=== PATIENT | female | born 1985 | race Caucasian/White ===

== ENCOUNTER 2020-12-28 23:16 | Emergency (ER) | payer OTHER ==
[~2020-12-28] VITALS: Ht 162.6 cm; Wt 69.4 kg
[~2020-12-28 23:16] MED LIST: ACETAMINOPHEN-1 EAC1 PO; ADDERALL 30 MG30 MG PO; CIPROFLOXACIN500 M1 PO; FLEXERIL PO; HYDROCHLOROTH12.5 M1 PO; IBUPROFEN 800800 MG PO; LISINOPRIL10 MG PO; LISINOPRIL20 MG PO; NOHOMEMEDICATIONS; NORCO 5-325 TA1 EACH PO; PRENATAL PO; ROBAXIN500 MG PO; TRAMADOL 50 MG50 MG PO; ZOFRAN ODT4 MG SUBLING
[2020-12-28 23:35] LABS: URINE BILIRUBIN NEGATIVE (Negative); URINE BLOOD TRACE (Negative); URINE CLARITY CLEAR; URINE COLOR YELLOW; URINE GLUCOSE-RANDOM NEGATIVE (Negative); URINE KETONES NEGATIVE (Negative); URINE LEUKOCYTES-REFLEX NEGATIVE (Negative); URINE NITRITE-REFLEX NEGATIVE (Negative); URINE PROTEIN NEGATIVE (Negative); URINE SPECIFIC GRAVITY >= 1.030 (1.005-1.030); URINE UROBILINOGEN 0.2 E.U./dl (0.2-1.0)
[2020-12-28 23:42] LABS: AMP/METHAMP Negative (Negative); BARBITURATES Negative (Negative); BENZODIAZEPINES Negative (Negative); COCAINE Negative (Negative); METHADONE Negative (Negative); OPIATES POSITIVE (Negative); PCP Negative (Negative); THC Negative (Negative)
[2020-12-29 00:40] LABS: ABSOLUTE BASOPHILS 0.1 thou/uL (0.0-0.2); ABSOLUTE EOSINOPHILS 0.5 thou/uL (0.0-0.7); ABSOLUTE LYMPHOCYTES 3.5 thou/uL (0.8-5.3); ABSOLUTE MONOCYTES 0.7 thou/uL (0.0-1.2); ABSOLUTE NEUTROPHILS 10.4 thou/uL (1.6-8.1); BASOPHILS 0.7 %; EOSINOPHILS 3.1 %; HEMATOCRIT 46.6 % (37.0-47.0); HEMOGLOBIN 16.1 gm/dL (12.0-15.0); LYMPHOCYTES 23.1 %; MCH 33.7 pg (26.0-34.0); MCHC 34.4 g/dL (28.0-37.0); MCV 97.7 fL (80.0-100.0); MONOCYTES 4.8 %; NUCLEATED RBCS 0 /100WBC; PLATELET COUNT* 244 thou/uL (150-400); POLYS 68.3 %; RBC 4.77 mil/uL (4.20-5.00); RDW-CV 13.8 % (10.5-14.5); WBC 15.3 thou/uL (4.0-11.0)
[2020-12-29 00:41] LABS: CALCIUM 8.2 mg/dL (8.5-10.1); POTASSIUM 3.3 mmol/L (3.5-5.1)
[2020-12-29] MEDS ORDERED: TRAMADOL 50 MG50 MG PO (02:26)
[2020-12-29] MEDS ORDERED: FLEXERIL PO (02:26)
[2020-12-29 02:36] VITALS: BP 154/96
== END 2020-12-29 02:37 | disposition home or self-care (01) ==
LOC: M.ERS 23:16
PROVIDERS: Emergency Medicine
DX: M54.50 Low back pain, unspecified (principal); Z79.899 Other long term (current) drug therapy; Z88.2 Allergy status to sulfonamides

== ENCOUNTER 2021-03-11 02:17 | Emergency (ER) | payer OTHER ==
[~2021-03-11] VITALS: Ht 162.6 cm; Wt 68.0 kg
[2021-03-11] MEDS ORDERED: LISINOPRIL-HCT1 EACH PO (02:29)
[2021-03-11] MEDS ORDERED: PROTONIX40 M2 PO (02:30)
[2021-03-11 03:18] LABS: URINE BILIRUBIN NEGATIVE (Negative); URINE BLOOD 3+ (Negative); URINE CLARITY CLOUDY; URINE COLOR YELLOW; URINE GLUCOSE-RANDOM NEGATIVE (Negative); URINE KETONES NEGATIVE (Negative); URINE PROTEIN 2+ (Negative); URINE SPECIFIC GRAVITY 1.025 (1.005-1.030); URINE UROBILINOGEN 0.2 E.U./dl (0.2-1.0)
[2021-03-11 03:21] LABS: URINE LEUKOCYTES-REFLEX 2+ (Negative); URINE NITRITE-REFLEX POSITIVE (Negative)
[2021-03-11 03:37] LABS: SQUAMOUS 4-10 Moderate /LPF (0-3)
[2021-03-11 03:38] LABS: CASTS None Seen /LPF (None Seen); URINE WBC-REFLEX >25 Many /HPF (0-5)
[2021-03-11 03:39] LABS: BACTERIA-REFLEX 1-9 Few /HPF (None Seen); CRYSTALS None Seen /LPF (None Seen); RENAL EPITHELIAL CELLS 0-3 Few /LPF (None Seen)
[2021-03-11] MEDS ORDERED: CEFPODOXIME PR100 MG PO (04:11)
[2021-03-11 04:35] LABS: ABSOLUTE BASOPHILS 0.1 thou/uL (0.0-0.2); ABSOLUTE EOSINOPHILS 0.6 thou/uL (0.0-0.7); ABSOLUTE LYMPHOCYTES 1.5 thou/uL (0.8-5.3); ABSOLUTE MONOCYTES 0.9 thou/uL (0.0-1.2); ABSOLUTE NEUTROPHILS 10.5 thou/uL (1.6-8.1); BASOPHILS 0.4 %; EOSINOPHILS 4.1 %; HEMATOCRIT 41.7 % (37.0-47.0); HEMOGLOBIN 14.1 gm/dL (12.0-15.0); LYMPHOCYTES 11.3 %; MCH 32.7 pg (26.0-34.0); MCHC 33.8 g/dL (28.0-37.0); MCV 96.7 fL (80.0-100.0); MONOCYTES 6.3 %; MPV 8.9 fl. (7.2-11.1); NUCLEATED RBCS 0 /100WBC; PLATELET COUNT* 234 thou/uL (150-400); POLYS 77.9 %; RBC 4.31 mil/uL (4.20-5.00); RDW-CV 13.7 % (10.5-14.5); WBC 13.4 thou/uL (4.0-11.0)
[2021-03-11 04:43] LABS: CALCIUM 8.4 mg/dL (8.5-10.1); CREATININE 1.1 mg/dL (0.6-1.3); POTASSIUM 4.2 mmol/L (3.5-5.1)
[2021-03-11] MEDS ORDERED: ZOFRAN ODT4 MG PO (05:07)
[2021-03-11] MEDS ORDERED: HYDROCODON-ACE1 EAC8 PO (05:07)
[2021-03-11 05:15] VITALS: BP 135/78
== END 2021-03-11 05:15 | disposition home or self-care (01) ==
LOC: M.ERS 02:17
PROVIDERS: Emergency Medicine
DX: N39.0 Urinary tract infection, site not specified (principal); Z98.890 Other specified postprocedural states; Z98.84 Bariatric surgery status; Z79.899 Other long term (current) drug therapy; Z88.2 Allergy status to sulfonamides